=== PATIENT | female | born 1980 | race African-American/Black ===

== ENCOUNTER 2019-09-03 13:59 | Emergency (ER) | payer SELFPAY ==
[~2019-09-03] VITALS: Ht 170.2 cm; Wt 68.0 kg
[2019-09-03 14:18] VITALS: BP 133/87
[2019-09-03] MEDS ORDERED: ACETAMINOPHEN 325 MG TAB PO ONE (15:00)
[2019-09-03] MEDS ORDERED: CLINDAMYCIN 600 MG/4 ML VL IM ONE (15:00)
[2019-09-03] MEDS ORDERED: cefTRIAXone SOD 1,000 MG VL IM ONE (15:00)
== END 2019-09-03 15:42 | disposition home or self-care (01) ==
LOC: ER 13:59
DX: S50.861A Insect bite (nonvenomous) of right forearm, initial encounter (principal); W57.XXXA Bitten or stung by nonvenomous insect and other nonvenomous arthropods, initial encounter; Y93.89 Activity, other specified; Y92.89 Other specified places as the place of occurrence of the external cause; Y99.8 Other external cause status
CPT/HCPCS: 96372

== ENCOUNTER 2019-10-31 12:36 | Inpatient (IN) | payer SELFPAY ==
[~2019-10-31] VITALS: Ht 170.2 cm; Wt 74.1 kg
[2019-10-31] MEDS ORDERED: SODIUM CHLORIDE 0.9% 1,000 ML IV ONE ×2 (13:05)
[2019-10-31] MEDS ORDERED: MORPHINE SULFATE 4 MG/ML SYR/VIAL IV ONE (13:15)
[2019-10-31] MEDS ORDERED: ONDANSETRON HCL 4 MG/2 ML VIAL IV ONE (13:15)
[2019-10-31 13:48] LABS: Basophils # (auto) 0 10 ^3/uL (0-0.2); Basophils % (auto) 0.5 % (0.0-2.0); Eosinophils # (auto) 0.1 10 ^3/uL (0-0.8); Eosinophils % (auto) 2.9 % (0.0-7.0); Hematocrit 36.5 % (36.0-46.0); Hemoglobin 11.7 g/dL (12.2-16.2); Lymphocytes # (auto) 1.2 10 ^3/uL (0.4-5.4); Lymphocytes % (auto) 24.8 % (10.0-50.0); Mean Corpuscular Hemoglobin 26.1 pg (28.0-32.0); Mean Corpuscular Hgb Conc. 32.1 g/dL (32.0-36.0); Mean Corpuscular Volume 81.4 fL (80.0-100.0); Monocytes # (auto) 0.3 10 ^3/uL (0-1.3); Monocytes % (auto) 5.9 % (0.0-12.0); Neutrophils # (auto) 3.2 10 ^3/uL (1.6-8.6); Neutrophils % (auto) 65.9 % (37.0-80.0); Nucleated Red Blood Cells % 0.1 %; Platelet Count (auto) 248 10^3/uL (140-450); Red Blood Cells 4.48 10^6/uL (4.0-5.20); Red Cell Distribution Width 13.3 % (11.8-14.3); White Blood Cell 4.9 10^3/uL (4.4-10.8)
[2019-10-31 13:54] LABS: Albumin 3.3 g/dL (3.4-5.0); Anion Gap 5 (5-15); Blood Urea Nitrogen 11 mg/dL (7-18); Calcium 9.2 mg/dL (8.5-10.1); Carbon Dioxide 27 mmol/L (21-32); Chloride 106 mmol/L (98-107); Glucose 108 mg/dL (74-106); Potassium 3.6 mmol/L (3.5-5.1); Sodium 138 mmol/L (136-145)
[2019-10-31 14:00] LABS: Alanine Aminotransferase 14 U/L (13-56); Alkaline Phosphatase 77 U/L (45-117); Aspartate Aminotransferase 16 U/L (15-37); BUN/Creatinine Ratio 15.1; Bilirubin, Total 0.3 mg/dL (0.2-1.0); GFR African American 116 mL/min; GFR Non-African American 96 mL/min; Total Protein 8.8 g/dL (6.4-8.2)
[2019-10-31] MEDS: LACTATED RINGER'S 1,000 ML IV ONE ×2 (14:22→14:26)
[2019-10-31] MEDS: SODIUM CHLORIDE 0.9% 1,000 ML IV SCH (15:05)
[2019-10-31] MEDS ORDERED: DOXYCYCLINE 100MG/250ML 250 ML IV ONE (15:15)
[2019-10-31] MEDS ORDERED: methylPREDNISolone SOD SUCC 125 MG/2 ML VL IV ONE (15:15)
[2019-10-31] MEDS ORDERED: PANTOPRAZOLE 40 MG TAB PO ONE (15:30)
[2019-10-31] MEDS ORDERED: DOCUSATE SOD 100 MG CAP PO PRN (15:30)
[2019-10-31] MEDS ORDERED: IPRATROPIUM BROM 0.5 MG/2.5ML INH SOL NEB PRN (15:30)
[2019-10-31] MEDS ORDERED: LORazepam 0.5 MG TAB PO PRN (15:30)
[2019-10-31] MEDS ORDERED: NITROGLYCERIN 0.4 MG SL TAB SL PRN (15:30)
[2019-10-31] MEDS ORDERED: ALUM & MAG HYDROX-SIMETH LIQ(MAALOX) 30 ML PO PRN (15:30)
[2019-10-31] MEDS ORDERED: ONDANSETRON HCL 4 MG/2 ML VIAL IV PRN (15:30)
[2019-10-31] MEDS ORDERED: ACETAMINOPHEN 325 MG TAB PO PRN (15:30)
[2019-10-31] MEDS ORDERED: MORPHINE SULF INJ 2 MG/ML SYRINGE 1ML IV PRN ×2 (15:30)
[2019-10-31 15:48] LABS: Protein, Urine 12.7 mg/dL (0.0-11.9)
[2019-10-31 15:52] LABS: Alcohol, Urine < 3.0 mg/dL (0-10); Amphetamine Screen, Urine NEGATIVE (NEGATIVE); Barbiturate Scree,Urine NEGATIVE (NEGATIVE); Benzodiazephine Screen, Urine NEGATIVE (NEGATIVE); Cannabinoid Screen, Urine POSITIVE (NEGATIVE); Cocaine Screen, Urine NEGATIVE (NEGATIVE); Opiate Scree,Urine POSITIVE (NEGATIVE)
[2019-10-31] MEDS ORDERED: IBUP200T76 PO (15:53)
[2019-10-31] MEDS ORDERED: ACE3T PO (15:53)
[2019-10-31] MEDS ORDERED: POM PO (15:54)
[2019-10-31 15:59] LABS: Phencyclidine Screen, Urine NEGATIVE (NEGATIVE)
[2019-10-31 16:25] LABS: Urine Bacteria NONE SEEN /hpf (None Seen); Urine Blood Negative /uL (Negative); Urine Mucus FEW (None Seen); Urine Specific Gravity 1.012 (1.001-1.035); Urine WBC 2 /hpf (0 - 5)
[2019-10-31 18:28] LABS: Cholesterol 130 mg/dL (< 200); HDL Cholesterol 26 mg/dL (40-59); LDL Cholesterol 85 mg/dL (< 100); Triglycerides 131 mg/dL (< 150)
--- NOTE | 2019-10-31 21:04 | NUR ---
RT NOTE: PT ASSESSED FOR PRN MED NEB TX, PT ON ROOM AIR SPO2 99%, HR 86, RR 16 WITH NO DISTRESS NOTED. NO TX INDICATED AT THIS TIME.
[2019-10-31] MEDS: methylPREDNISolone SOD SUCC 40 MG/ML VL IV SCH (23:07)
[2019-10-31] MEDS: HYDROcodone-ACET 5/325MG TAB PO PRN (23:20)
[2019-11-01] VITALS (7 sets, daily range): BP systolic 99–122; BP diastolic 66–78
--- NOTE | 2019-11-01 00:42 | NUR ---
MS admit from ER FRED SMITH admitted to tele/MS after SBAR not received. Patient oriented to Coral Casillas, RN primary RN, unit, room, bed, and unit policies regarding patient care and visiting hours. Patient weighed by bed scale and encouraged to call if they need something. Pt VS WNL, no s/s of distress, pain or SOB noted at this time. All questions and concerns addressed, patient verbalized understanding.
[2019-11-01] MEDS: DOXYCYCLINE 100MG/250ML 250 ML IV SCH ×2 (03:00→15:00)
--- NOTE | 2019-11-01 03:55 | NUR ---
Discussed POC with pt. Pt expressed concern about POC. Pt says that she was never seen by a physician in the ER and that the plan for her care was not discussed with her. Pt states that she is unaware of why she was admitted to the med/surg unit. Pt was told that per the physicians notes, the plan for her is to administer IV steroids and antibiotics. Pt was also informed that there were lab results pending which could be an additional reason for admission. Pt verbalized understanding but is opting to refuse antibiotics until POC is discussed with her. Pt was reassured that her concerns would be relayed to day RN and physician. Pt verbalized understanding at this time. Will continue to monitor.
[2019-11-01] MEDS: SODIUM CHLORIDE 0.9% 1,000 ML IV SCH ×2 (06:08→16:55)
[2019-11-01 06:21] LABS: Ferritin 29.1 ng/mL (10-322)
[2019-11-01] MEDS: methylPREDNISolone SOD SUCC 40 MG/ML VL IV SCH ×2 (06:23→13:23)
--- NOTE | 2019-11-01 07:40 | NUR ---
Respiratory note: HR 59, RR 16, SPO2 100% ON RA, BS CLEAR. PRN MED NEB TX NOT INDICATED AT THIS TIME.NO SIGNS OR SYMPTOMS OF RESPIRATORY DISTRESS NOTED.
--- NOTE | 2019-11-01 07:46 | NUR ---
Opening Note Assumed pt care from NOC RN. Pt is a/ox4 with no s/s of distress or SOB. Pt is currently sitting upright in bed with no complaints at this time. Pt states that she is confused regarding POC and treatment course; provided pt with education. Safety measures maintained with call light within reach, bed in lowest position and side rails up. Will continue to monitor for changes.
[2019-11-01 08:11] LABS: Folate (Folic Acid) 11.1 ng/mL (5.38-24)
[2019-11-01] MEDS ORDERED: PANTOPRAZOLE 40 MG TAB PO SCH (10:00)
[2019-11-01] MEDS ORDERED: ENOXAPARIN SOD 40 MG/0.4 ML SYRINGE SC SCH (10:00)
--- NOTE | 2019-11-01 10:56 | NUR ---
Pt Off Unit for CT Pt taken off unit for CT via wheelchair. Addendum: 11/01/19 at 1109 by SARANYA CHAPPELL RN RN Pt back on unit.
[2019-11-01] MEDS: HYDROcodone-ACET 5/325MG TAB PO PRN (13:26)
--- NOTE | 2019-11-01 13:49 | NUR ---
Dr Luis at Bedside MD to see pt. Discussed POC with pt. Stated she would follow up with [facility] [employer] [employer] regarding POC and possible d/c. Will continue to monitor.
--- NOTE | 2019-11-01 15:01 | NUR ---
Dr Luis at Bedside Plans to d/c pt home today. Will implement and continue to monitor.
--- NOTE | 2019-11-01 16:58 | NUR ---
Paged Dr Toby Harris MD regarding d/c RX. Per pt, she is requesting something "anti-inflammatory". Pagemichael KONG for further orders. Will continue to monitor. Addendum: 11/01/19 at 1705 by SARANYA CHAPPELL RN RN pagemichael back. RX order [facility]. Order read back and verified RX called in to [facility], spoke with pharmacist.
--- NOTE | 2019-11-01 17:16 | NUR ---
IV and Tele Box 82 D/C'ed IV to pt's R AC removed. Catheter was removed fully intact. Site is asymptomatic. Pressure was applied to sit for 3 minutes with gauze and then wrapped in gauze. Pt instructed to keep dressing on for 30 minutes, pt verbalized understanding. \ Tele 82 removed and sent back to ICU. Staff made aware of d/c.
--- NOTE | 2019-11-01 18:18 | NUR ---
Pt D/C'ed Off Unit Pt d/c'ed off unit. Pt was wheeled off unit via wheelchair. Pt is a/ox4 with no s/s of distress or SOB. Pt took all belongings, education material, all questions were answered, pt aware of follow up appointments, as well as need to fill RX. IV and tele box were d/c'ed prior to d/c.
== END 2019-11-01 18:18 | disposition home or self-care (01) | DRG 197 ==
LOC: ER 12:36 → TELE 12:37 → TELE-WESTW 23:39 → UNDODISIN 11-01 17:00
PROVIDERS: ADMIT Hospitalist; ATTEND Internal Medicine
DX: J84.112 Idiopathic pulmonary fibrosis (principal); E44.0 Moderate protein-calorie malnutrition; G89.29 Other chronic pain; K29.50 Unspecified chronic gastritis without bleeding; E86.0 Dehydration; M06.9 Rheumatoid arthritis, unspecified; M19.90 Unspecified osteoarthritis, unspecified site; M32.9 Systemic lupus erythematosus, unspecified; M35.00 Sjogren syndrome, unspecified; D64.9 Anemia, unspecified; Z68.25 Body mass index [BMI] 25.0-25.9, adult; Z88.1 Allergy status to other antibiotic agents; J44.9 Chronic obstructive pulmonary disease, unspecified
CPT/HCPCS: 36415; 71045; 71250; 80053; 80061; 80307; 81001; 82570; 82607; 82728; 82746; 83010; 83021; 83036; 83615; 84156; 84443; 84484; 85025; 85045; 85652; 85660; 86038; 86141; 87040; 87086; 96365; 96368; 96375; 96376; G0378; J2405; J3490

== ENCOUNTER 2024-09-06 23:29 | Emergency (ER) | payer OTHER ==
[~2024-09-06] VITALS: Ht 170.2 cm; Wt 85.9 kg
[~2024-09-06 23:29] MED LIST: IBUP200T76 PO; POM PO
[2024-09-06 23:51] LABS: Basophils # (auto) 0 10 ^3/uL (0-0.2); Basophils % (auto) 0.3 % (0.0-2.0); Eosinophils # (auto) 0.2 10 ^3/uL (0-0.8); Eosinophils % (auto) 3.1 % (0.0-7.0); Hematocrit 34.6 % (36.0-46.0); Hemoglobin 11.6 g/dL (12.2-16.2); Lymphocytes # (auto) 1.3 10 ^3/uL (0.4-5.4); Lymphocytes % (auto) 16.5 % (10.0-50.0); Mean Corpuscular Hemoglobin 27.2 pg (28.0-32.0); Mean Corpuscular Hgb Conc. 33.5 g/dL (32.0-36.0); Mean Corpuscular Volume 81.2 fL (80.0-100.0); Monocytes # (auto) 0.5 10 ^3/uL (0-1.3); Monocytes % (auto) 6.3 % (0.0-12.0); Neutrophils # (auto) 5.7 10 ^3/uL (1.6-8.6); Neutrophils % (auto) 73.8 % (37.0-80.0); Platelet Count (auto) 247 10^3/uL (140-450); Red Blood Cells 4.26 10^6/uL (4.0-5.20); Red Cell Distribution Width 13.8 % (11.8-14.3); White Blood Cell 7.7 10^3/uL (4.4-10.8)
--- NOTE | 2024-09-06 23:51 | ED.PDOC ---
History of Present Illness HPI Comments 43-year-old female who states that she is 12 weeks and having morning sickness has been having intermittent vomiting for the last 2 months and then woke up from a nap over the last 3 days with a dull frontal headache. Patient states that she went to urgent care and they told her they come to the emergency department because they thought she was dehydrated. Patient denies abdominal pain. No vaginal bleeding or discharge. Patient has been getting care and had an ultrasound about a week ago that was normal with a viable 12 week Time Seen by MD: 23:34 Allergies: Coded Allergies: Cephalexin (Verified Allergy, Unknown, 04/22/15) Home Meds Active Scripts Metoclopramide Hcl (Reglan) 5 Mg Tab, 5 MG PO Q6HP PRN for 30 Days, #120 TAB 3 Refills Prov:SORAYA DEL REAL MD 09/07/24 Reported Medications Patients Own Medication (PATIENTS OWN MEDICATION) ., 1 TAB PO DAILY PTS OWN MED DRUG: LUPAVITA FREQ: 1 TAB PO DAILY RX# EXP: DATE DISP: TECH: [facility]: 10/31/19 Ibuprofen (Advil) 200 Mg Tab, 200 MG PO PRN, TAB 10/31/19 Information Source: Patient Mode of Arrival: Ambulatory Severity: Moderate Timing: Days Duration: Intermittent Past Medical History PAST MEDICAL HISTORY: Denies Surgical History: Denies all surgeries SOLDERER History: No Pertinent SOLDERER History (12 wks ), Other Family History Family History: Reviewed,noncontributory to illness Social History Smoker: Non-Smoker Alcohol: Sober Drugs: Marijuana Lives In: Home Gastrointestinal: reports: nausea, vomiting Genitourinary: reports: , others Neurological: reports: headache All Other Systems: Reviewed and Negative Physical Exam General Appearance: Mild Distress HEENT: Normal ENT Inspection, Pharynx Normal, TMs Normal Neck: Full Range of Motion, Non-Tender, Normal, Normal Inspection Respiratory: Chest Non-Tender, Lungs Clear, No Accessory Muscle Use, No Respiratory Distress, Normal Breath Sounds Cardiovascular: No Edema, No JVD, No Murmur, No Gallop, Normal Peripheral Pulses, Regular Rate/Rhythm Breast Exam: Deferred Gastrointestinal: Other (soft nontender uterus) Genitalia: Deferred Pelvic: Deferred Rectal: Deferred Extremities: No calf tenderness, Normal capillary refill, Normal inspection, Normal range of motion, Non-tender, No pedal edema Musculoskeletal : Apperance: Normal Neurologic: Alert, grass farmer II-XII nml as Tested, No Motor Deficits, Normal Affect, Normal Mood, No Sensory Deficits Cerebellar Function: Normal Reflexes: Normal Skin: Dry, Normal Color, Warm Lymphatic: No Adenopathy Was a procedure done? Was a procedure done?: No Differential Dx Considerations may include: Differential diagnosis includes but is not limited to: miscarriage, demise, dehydration, sepsis, electrolyte abnormality, symptomatic anemia, hypovolemia and others X-Ray, Labs, Meds, VS Vital Signs Date Time Temp Pulse Resp B/P (MAP) Pulse Ox O2 Delivery O2 Flow Rate FiO2 09/07/24 01:13 98.3 95 18 131/85 (100) 98 98.3 09/07/24 01:13 95 18 98 Room Air 09/06/24 23:59 98.7 102 16 121/67 (85) 97 98.7 Lab Test 09/06/24 23:43 Range/Units White Blood Count 7.7 4.4-10.8 10^3/uL Red Blood Count 4.26 4.0-5.20 10^6/uL Hemoglobin 11.6 L 12.2-16.2 g/dL Hematocrit 34.6 L 36.0-46.0 % Mean Corpuscular Volume 81.2 80.0-100.0 fL Mean Corpuscular Hemoglobin 27.2 L 28.0-32.0 pg Mean Corpuscular Hemoglobin Concent 33.5 32.0-36.0 g/dL Red Cell Distribution Width 13.8 11.8-14.3 % Platelet Count 247 140-450 10^3/uL Mean Platelet Volume 7.2 6.9-10.8 fL Neutrophils (%) (Auto) 73.8 37.0-80.0 % Lymphocytes (%) (Auto) 16.5 10.0-50.0 % Monocytes (%) (Auto) 6.3 0.0-12.0 % Eosinophils (%) (Auto) 3.1 0.0-7.0 % Basophils (%) (Auto) 0.3 0.0-2.0 % Neutrophils # (Auto) 5.7 1.6-8.6 10 ^3/uL Lymphocytes # (Auto) 1.3 0.4-5.4 10 ^3/uL Monocytes # (Auto) 0.5 0-1.3 10 ^3/uL Eosinophils # (Auto) 0.2 0-0.8 10 ^3/uL Basophils # (Auto) 0 0-0.2 10 ^3/uL Nucleated Red Blood Cells 0.0 % Sodium Level 136 136-145 mmol/L Potassium Level 3.9 3.5-5.1 mmol/L Chloride Level 103 98-107 mmol/L Carbon Dioxide Level 24 20-31 mmol/L Anion Gap 9 5-15 Blood Urea Nitrogen 9 9-23 mg/dL Creatinine 0.68 0.550-1.02 mg/dL Glomerular Filtration Rate Calc 112 >90 mL/min BUN/Creatinine Ratio 13.2 10.0-20.0 Serum Glucose 92 74-106 mg/dL Calcium Level 10.0 8.7-10.4 mg/dL Magnesium Level 1.7 1.6-2.6 mg/dL Current Medications Medications (Trade) Dose Ordered Sig/Fede Route Start Time Stop Time Status Last Admin Sodium Chloride 1,000 ml @ 1,000 mls/hr Q1H ONCE IVB 09/06/24 23:45 09/07/24 00:44 DC 09/07/24 01:09 Time of 1ST Reevaluation: 23:50 Reevaluation 1ST: Unchanged Patient Education/Counseling: Diagnosis, Treatment Family Education/Counseling: No Family Present SEPSIS Sepsis Screen Orders/Vitals/Labs Physician Orders Heart Tones (09/06/24 ) Obtain Heart Tones (09/06/24 23:52) Vital Signs Date Time Temp Pulse Resp B/P (MAP) Pulse Ox O2 Delivery O2 Flow Rate FiO2 09/07/24 01:13 98.3 95 18 131/85 (100) 98 98.3 09/07/24 01:13 95 18 98 Room Air 09/06/24 23:59 98.7 102 16 121/67 (85) 97 98.7 Laboratory Tests Test 09/06/24 23:43 White Blood Count 7.7 10^3/uL (4.4-10.8) Medications Medications Dose Ordered Sig/Fede Route Start Time Stop Time Status Last Admin Dose Admin Sodium Chloride 1,000 ml @ 1,000 mls/hr Q1H ONCE IVB 09/06/24 23:45 09/07/24 00:44 DC 09/07/24 01:09 Departure 1 Departure Time of Disposition: 01:00 Impression: Primary Impression: Dehydration Additional Impression: 12 weeks gestation of Disposition: HOME / SELF CARE / HOMELESS Condition: Stable e-Prescriptions Metoclopramide Hcl (Reglan) 5 Mg Tab 5 MG PO Q6HP PRN for 30 Days, #120 TAB 3 Refills Prov: SORAYA DEL REAL MD 09/07/24 Discharged With: Self Critical Care Note Critical Care Time?: No Stability Stability form required: No Heart Score Heart Score: Heart Score Response (Comments) Value History N/A 0 EKG N/A 0 Age N/A 0 Risk Factors N/A 0 Troponin N/A 0 Total 0 SORAYA DEL REAL MD Sep 06, 2024 23:51
[2024-09-07 00:07] LABS: Chloride 103 mmol/L (98-107); Potassium 3.9 mmol/L (3.5-5.1); Sodium 136 mmol/L (136-145)
[2024-09-07 00:08] LABS: Anion Gap 9 (5-15); Carbon Dioxide 24 mmol/L (20-31)
[2024-09-07 00:13] LABS: BUN/Creatinine Ratio 13.2 (10.0-20.0); Blood Urea Nitrogen 9 mg/dL (9-23); Glucose 92 mg/dL (74-106)
[2024-09-07 00:27] LABS: Magnesium 1.7 mg/dL (1.6-2.6)
[2024-09-07] MEDS ORDERED: METO5TAB67 PO (00:53)
[2024-09-07] MEDS: SODIUM CHLORIDE 0.9% 1,000 ML IVB ONE (01:09)
[2024-09-07 01:13] VITALS: BP 131/85; PULSE 95; RESP 18; TEMP 98.3; O2SAT 98
== END 2024-09-07 02:23 | disposition home or self-care (01) ==
LOC: ER 23:29
DX: O26.891 Other specified pregnancy related conditions, first trimester (principal); E86.0 Dehydration; Z3A.12 12 weeks gestation of pregnancy; Z88.1 Allergy status to other antibiotic agents
CPT/HCPCS: 36415; 80048; 83735; 85025; 96360; 99283; J7030

== ENCOUNTER 2025-02-06 08:30 | Emergency (ER) | payer OTHER, MEDICAID ==
[~2025-02-06] VITALS: Ht 170.2 cm; Wt 87.8 kg
[~2025-02-06 08:30] MED LIST changes: +METO5TAB67 PO
[2025-02-06 10:04] LABS: Hematocrit 35.5 % (36.0-46.0); Hemoglobin 11.8 g/dL (12.2-16.2); Mean Corpuscular Hemoglobin 28.8 pg (28.0-32.0); Mean Corpuscular Volume 86.6 fL (80.0-100.0); Nucleated Red Blood Cells % 0.1 %
[2025-02-06] MEDS: PROMETHAZINE HCL 6.25 MG/5 ML ORAL SYRUP PO ONE (10:08)
[2025-02-06 10:14] LABS: Chloride 104 mmol/L (98-107); Potassium 3.9 mmol/L (3.5-5.1); Sodium 137 mmol/L (136-145)
[2025-02-06 10:15] LABS: Anion Gap 11 (5-15); Calcium 8.8 mg/dL (8.7-10.4); Carbon Dioxide 22 mmol/L (20-31)
--- NOTE | 2025-02-06 10:19 | ED.PDOC ---
History of Present Illness(SKN HPI Comments 44-year-old female presents to the ER department MHx of lupus, lung disease, asthma in the chief complaint of allergic reaction. Patient reports on currently being 34 weeks but having had an allergic reaction on Thursday after eating avocado. Patient called her OBGYN and was informed to not go to the hospital until she had nausea and vomiting. The patient states on having heartburn, body aches, shortness of breath, lightheadedness, suprapubic pain, unable to lay down due from pain since Thursday of 02/04/2025. The patient has a having a sudden onset of nausea and vomiting which started yesterday onto today as well as having two episodes of diarrhea this morning. Patient is . Denies any other symptoms at this time. Chief Complaint: Allergic Reaction Time Seen by MD: 09:05 Primary Care Provider: SHANNON History of Present Illness: Nurses Notes, Medications, Allergies Allergies: Coded Allergies: Cephalexin (Verified Allergy, Unknown, 04/22/15) Home Meds Active Scripts Metoclopramide Hcl (Reglan) 5 Mg Tab, 5 MG PO Q6HP PRN for 30 Days, #120 TAB 3 Refills Prov:SORAYA DEL REAL MD 09/07/24 Reported Medications Patients Own Medication (PATIENTS OWN MEDICATION) ., 1 TAB PO DAILY PTS OWN MED DRUG: LUPAVITA FREQ: 1 TAB PO DAILY RX# EXP: DATE DISP: TECH: [facility]: 10/31/19 Ibuprofen (Advil) 200 Mg Tab, 200 MG PO PRN, TAB 10/31/19 Information Source: Patient Mode of Arrival: Ambulatory Severity: Moderate Timing: Days Duration: Since onset, Days Prehospital treatment: None Location: Abdomen Mechanism: Spontaneous Onset (After eating an avocado for which she is allergic to) Developed: Shortness of Breath Occurence: Indoors Object: None Condition of Object: None Wound Type: None Immunization Status of Animal: NA History of: None Associated Signs and Symptoms: N/V, Abdominal Pain Past Medical History PAST MEDICAL HISTORY: Asthma Past Medical History (Other): Lupus, lung disease Surgical History: Denies all surgeries STENCIL INSPECTOR History: No Pertinent STENCIL INSPECTOR History, Other () Family History Family History: Reviewed,noncontributory to illness, Unknown Social History Smoker: Unknown Alcohol: Unknown Drugs: Unknown Lives In: Home Constitutional: reports: others (Body aches); denies: chills, diaphoresis, fatigue, fever, malaise, sweats, weakness EENTM: denies: blurred vision, double vision, ear bleeding, ear discharge, ear drainage, ear pain, ear ringing, eye pain, eye redness, hearing loss, mouth pain, mouth swelling, nasal discharge, nose bleeding, nose congestion, nose pain, photophobia, tearing, throat pain, throat swelling, voice changes, others Respiratory: reports: shortness of breath; denies: cough, hemoptysis, orthopnea, SOB at rest, SOB with excertion, stridor, wheezing, others Cardiovascular: denies: chest pain, dizzy spells, diaphoresis, Dyspnea on exertion, edema, irregular heart beat, left arm pain, lightheadedness, palpitations, PND, syncope, others Gastrointestinal: reports: abdominal pain, diarrhea, nausea, vomiting; denies: abdomen distended, blood streaked bowels, constipated, dysphagia, difficulty swallowing, hematemesis, melena, poor appetite, poor fluid intake, rectal bleeding, rectal pain, others Genitourinary: denies: abnormal vagina bleeding, burning, dyspareunia, dysuria, flank pain, frequency, hematuria, incontinence, pain, , vagina discharge, urgency, others Neurological: reports: others (Lightheadedness); denies: dizziness, fainting, headache, left sided numbness, left sided weakness, numbness, paresthesia, pre- existing deficit, right sided numbness, right sided weakness, seizure, speech pr oblems, tingling, tremors, weakness Musculoskeletal: denies: back pain, gout, joint pain, joint swelling, muscle pain, muscle stiffness, neck pain, others Integumetry: denies: bruises, change in color, change in hair/nails, dryness, laceration, lesions, lumps, rash, wounds, others Allergic/Immunocompromised: denies: Difficulty Healing, Frequent Infections, Hives, Itching, others Hematologic/Lymphatic: denies: anemia, blood clots, easy bleeding, easy bruising, swollen glands, others Endocrine: denies: excessive hunger, excessive sweating, excessive thirst, excessive urination, flushing, intolerance to cold, intolerance to heat, unexplained weight gain, unexplained weight loss, others Psychiatric: denies: anxiety, bipolar disorder, depression, hopeless, panic disorder, schizophrenia, sleepless, suicidal, others All Other Systems: Reviewed and Negative Physical Exam Exam Comments Abdominal pain, N/V/D General Appearance: No Apparent Distress, Normal HEENT: Normal ENT Inspection, Pharynx Normal, TMs Normal Neck: Full Range of Motion, Non-Tender, Normal, Normal Inspection Respiratory: Chest Non-Tender, Lungs Clear, No Accessory Muscle Use, No Respiratory Distress, Normal Breath Sounds Cardiovascular: No Edema, No JVD, No Murmur, No Gallop, Normal Peripheral Pulses, Regular Rate/Rhythm Breast Exam: Deferred Gastrointestinal: No Organomegaly, Non Tender, No Pulsatile Mass, Normal Bowel Sounds, Soft Genitalia: Deferred Pelvic: Deferred Rectal: Deferred Extremities: No calf tenderness, Normal capillary refill, Normal inspection, Normal range of motion, Non-tender, No pedal edema Musculoskeletal : Apperance: Normal Neurologic: Alert, clutch mechanic II-XII nml as Tested, No Motor Deficits, Normal Affect, Normal Mood, No Sensory Deficits Cerebellar Function: Normal Reflexes: Normal Skin: Dry, Normal Color, Warm Lymphatic: No Adenopathy Was a procedure done? Was a procedure done?: No X-Ray, Labs, Meds, VS Vital Signs Date Time Temp Pulse Resp B/P (MAP) Pulse Ox O2 Delivery O2 Flow Rate FiO2 02/06/25 11:11 78 16 97 Room Air 02/06/25 11:11 98.5 82 16 130/74 (92) 96 98.5 02/06/25 08:32 97.4 110 16 103/72 98 97.4 Lab Test 02/06/25 10:20 02/06/25 09:27 Range/Units Urine Color Yellow Yellow Urine Clarity Clear Clear Urine pH 7.0 5.0-9.0 Urine Specific [place] 1.020 1.001-1.035 Urine Protein Trace H Negative Urine Ketones Negative Negative Urine Blood Negative Negative /uL Urine Nitrite Negative Negative Urine Bilirubin Negative Negative Urine Urobilinogen Normal Negative mg/dL Urine Leukocyte Esterase Negative Negative /uL Urine RBC 2 0 - 4 /hpf Urine Microscopic WBC 2 0-5 /HPF Urine Squamous Epithelial Cells Few <5 /hpf Urine Bacteria Few H None Seen /hpf Urine Glucose Normal Normal mg/dL White Blood Count 4.7 4.4-10.8 10^3/uL Red Blood Count 4.10 4.0-5.20 10^6/uL Hemoglobin 11.8 L 12.2-16.2 g/dL Hematocrit 35.5 L 36.0-46.0 % Mean Corpuscular Volume 86.6 80.0-100.0 fL Mean Corpuscular Hemoglobin 28.8 28.0-32.0 pg Mean Corpuscular Hemoglobin Concent 33.3 32.0-36.0 g/dL Red Cell Distribution Width 13.4 11.8-14.3 % Platelet Count 149 140-450 10^3/uL Mean Platelet Volume 8.4 6.9-10.8 fL Neutrophils (%) (Auto) 75.1 37.0-80.0 % Lymphocytes (%) (Auto) 16.4 10.0-50.0 % Monocytes (%) (Auto) 6.4 0.0-12.0 % Eosinophils (%) (Auto) 1.9 0.0-7.0 % Basophils (%) (Auto) 0.2 0.0-2.0 % Neutrophils # (Auto) 3.5 1.6-8.6 10 ^3/uL Lymphocytes # (Auto) 0.8 0.4-5.4 10 ^3/uL Monocytes # (Auto) 0.3 0-1.3 10 ^3/uL Eosinophils # (Auto) 0.1 0-0.8 10 ^3/uL Basophils # (Auto) 0 0-0.2 10 ^3/uL Nucleated Red Blood Cells 0.1 % Sodium Level 137 136-145 mmol/L Potassium Level 3.9 3.5-5.1 mmol/L Chloride Level 104 98-107 mmol/L Carbon Dioxide Level 22 20-31 mmol/L Anion Gap 11 5-15 Blood Urea Nitrogen 9 9-23 mg/dL Creatinine 0.44 L 0.550-1.02 mg/dL Glomerular Filtration Rate Calc 124 >90 mL/min BUN/Creatinine Ratio 20.5 H 10.0-20.0 Serum Glucose 76 74-106 mg/dL Calcium Level 8.8 8.7-10.4 mg/dL X-Ray, Labs, Meds, VS Comment 44-year-old female presents to the ER department MHx of lupus, lung disease, asthma in the chief complaint of allergic reaction. Patient arrives alert and oriented, ABC's intact, afebrile, vital signs stable, saturating well in room air Patient presents with abdominal pain, nausea, vomiting, diarrhea, myalgia, intermittent fevers. The cause of the patients symptoms is not clear but based on history the symptoms are likely due to either food poisoning or viral gastrointestinal infection. I also considered enteropathic gastroenteritis, but the patient has not had any bloody stools. Traveler's diarrhea but the patient has not traveled recently. Low suspicion for appendicitis as the patient is well-appearing without any tenderness or pain to the abdomen. Similarly, low suspicion for intussusception as the patient did not have any intermittent abdominal pain nor did they have any bloody bowel movements. Other differentials considered but not limited to, small bowel obstruction, coronary syndrome, bowel ischemia, DKA, pancreatitis, sepsis/serious bacterial illness. Tolerating PO fluids, and shows no signs of dehydration. Suspect likely transient course of illness. Presumed self-limited etiology, provided oral rehydration education. Plan discharge home with prompt primary care physician follow up in the next 48 hours. Return precautions discussed. Additional MDM Review of External, Non-ED records: External records reviewed. Discussion with independent historian (EMS, family) history obtained from the patient/parents (if applicable) at bedside Chronic conditions affecting care: None Social determinants of health affecting care: None Consideration of admission (observation or admission): I considered escalation of care to admission for this patient, however given the reassuring workup, the patient is safe for outpatient management. Discussion with the Radiology: No Tests considered but not performed: Prescription medication considered but not given: 12 lead EKG interpretation: Time of 1ST Reevaluation: 09:35 Reevaluation 1ST: Unchanged Patient Education/Counseling: Diagnosis, Treatment, Prognosis Family Education/Counseling: No Family Present SEPSIS Sepsis Screen Date sepsis recognized/suspect: Feb 06, 2025 Time Sepsis recognized/suspect: 08 Recent Procedure: No On Antibiotic Therapy: No Respiratory Rate >20: No Heart Rate >90: No Temp<36 C (96.8 F) or >38.3 C: No SBP <90 or MAP <65 mmHG: No New Acute Mental Status Change: No Is the patient on CPAP, BIPAP,: No Vital Signs Date Time Temp Pulse Resp B/P (MAP) Pulse Ox O2 Delivery O2 Flow Rate FiO2 02/06/25 11:11 78 16 97 Room Air 02/06/25 11:11 98.5 82 16 130/74 (92) 96 98.5 02/06/25 08:32 97.4 110 16 103/72 98 97.4 Laboratory Tests Test 02/06/25 09:27 White Blood Count 4.7 10^3/uL (4.4-10.8) Departure 1 Departure Time of Disposition: 10:49 Impression: Primary Impression: Viral gastroenteritis Disposition: 01 HOME / SELF CARE / HOMELESS Condition: Stable Discharged With: Self Critical Care Note Critical Care Time?: No Stability Stability form required: No Heart Score Heart Score: Heart Score Response (Comments) Value History N/A 0 EKG N/A 0 Age N/A 0 Risk Factors N/A 0 Troponin N/A 0 Total 0 I personally scribed for HAILEE FRAZIER NP ([email or web address]) on 02/06/25 at 10:19. Electronically submitted by [place] ([email or web address]). HAILEE FRAZIER NP Feb 06, 2025 10:19
[2025-02-06 10:20] LABS: BUN/Creatinine Ratio 20.5 (10.0-20.0); Glucose 76 mg/dL (74-106)
[2025-02-06 10:32] LABS: Blood Urea Nitrogen 9 mg/dL (9-23)
[2025-02-06 10:46] LABS: Urine Protein, UAD TRACE (Negative)
[2025-02-06 11:11] VITALS: BP 130/74; PULSE 78; RESP 16; TEMP 98.5; O2SAT 97
== END 2025-02-06 11:13 | disposition home or self-care (01) ==
LOC: ER 08:30
DX: O26.893 Other specified pregnancy related conditions, third trimester (principal); T78.40XA Allergy, unspecified, initial encounter; O21.9 Vomiting of pregnancy, unspecified; O99.513 Diseases of the respiratory system complicating pregnancy, third trimester; J45.909 Unspecified asthma, uncomplicated; Z88.1 Allergy status to other antibiotic agents; Z3A.34 34 weeks gestation of pregnancy
CPT/HCPCS: 36415; 80048; 81001; 85025